=== PATIENT | male | born 1955 | race Caucasian/White ===

== ENCOUNTER 2019-09-02 12:20 | Emergency (ER) | payer BC, MEDICARE ==
--- OUTSIDE RECORDS SUMMARY | 2019-09-02 12:27 | XMS REPORT | Continuity of Care Document ---
:1955 External Reference #:[id number] Author Name Moris Alvarez MD (transmitted by agent of provider Joyce Farris) Address [address], [address] [place] [address] Care Team Providers Name Role Phone Darion Johnson MD - Orthopaedic Care Team Information Industrial Eng Surgery Peter Mitchell MD - Family Care Team Information Industrial Eng [phone] Medicine Problems Description No Information Available Social History Type Date Description Comments Sex Unknown Tobacco Use Start: Unknown Former Cigarette Occasional only, End: Unknown Smoker while in Smoking Status Reviewed: 08/26/19 Former Cigarette Occasional only, Smoker while in ETOH Use Consumes 2 glasses of wine per day Tobacco Use Start: Unknown Patient is a former End: Unknown smoker Recreational Drug Use Denies Drug Use Exercise Type/Frequency Exercises regularly Allergies, Adverse Reactions, Alerts Description No Known Drug Allergies Medications Active Medications SIG Qnty Indications Ordering Provider Date Esomeprazole Magnesium 1 by mouth 30caps R05 Moris Alvarez MD 08/26/[address] Aspir-81 1 by mouth Unknown 81mg Tablets DR every day Losartan Potassium 1 by mouth Peter Mitchell, 25mg daily Tablets Medications Administered in Office Medication SIG Qnty Indications Ordering Provider Date Depomedrol 80MG Shiva Pulido M.D. 04/06/2015 Injection Immunizations Description No Information Available Vital Signs Date Vital Result Comment 08/26/2019 8:03am Height 73 inches 6'1" Weight 192.38 lb Heart Rate 72 /min BP Systolic Sitting 156 mmHg Lue reg cuff BP Diastolic Sitting 98 mmHg Lue reg cuff O2 % BldC Oximetry 96 % On Ra BMI (Body Mass Index) 25.4 kg/m2 12/16/2017 9:41am Height 73 inches 6'1" Weight 189.00 lb Heart Rate 68 /min BP Systolic Sitting 156 mmHg BP Diastolic Sitting 86 mmHg Pain Level 2 BMI (Body Mass Index) 24.9 kg/m2 Procedures Date Code Description Status 05/01/2019 99815 Pulmonary Function><Bronchodil Completed Medical Devices Description No Information Available Encounters Description No Information Available Assessments Date Code Description Provider 08/26/2019 R91.8 Other nonspecific abnormal finding of lung field Moris Alvarez MD 08/26/2019 R05 Cough Moris Alvarez MD 05/01/2019 J44.9 Chronic obstructive pulmonary disease, Lou Vaz MD unspecified Plan of Treatment Future Appointment(s):10/01/2019 9:45 am - Moris Alvarez MD at [facility] [address]08/26/2019 - Moris Alvarez, MDR91.8 Other nonspecific abnormal finding of lung fieldNew Xrays:CT Chest W/O, Ordered: 08/26/19Comments: We will repeat CAT scan in early to middle September.R05 CoughNew Medication: Esomeprazole Magnesium 20 mg - 1 by mouth every dayNew Labs:Sputum Culture &amp ; Sensitiv, Ordered: 08/26/19putum Smear, Ordered: 08/26/19Comments:I will start him on omeprazole to see if that helps cough. I will also send sputum's for eosinophils and Gram stain culture. Functional Status Description No Information Available Mental Status Description No Information Available Referrals Description No Information Available
--- NOTE | 2019-09-02 15:15 | UC ---
Eye Complaint HPI - HPI Summary HPI Summary: WOKE UP THIS MORNING WITH BILATERAL EYE REDNESS, IRRITATION AND CLEAR DRAINAGE. OVER THE COURSE OF THE DAY HAS WORSENED ON THE RIGHT. HAS FOREIGN BODY SENSATION. COMPLAINING OF SOME DOUBLE VISION AND BLURRY VISION. NO HEADACHE, NAUSEA, PHOTOPHOBIA. DENIES ANY RECENT ILLNESS. DOES NOT WEAR CONTACT LENSES. - History of Current Complaint Chief Complaint: UCEye Stated Complaint: EYE PROBLEM Time Seen by Provider: 09/02/19 14:09 Hx Obtained From: Patient Onset/Duration: Sudden Onset, Lasting Hours, Still Present Timing: Constant Severity Initially: Moderate Severity Currently: Moderate Pain Intensity: 7 Pain Scale Used: 0-10 Numeric Location of Injury: Conjunctiva Character: Foreign Body Sensation Aggravating Factor(s): Nothing Alleviating Factor(s): Nothing Associated Signs And Symptoms: Positive: Drainage (Clear), Vision Impairment Right. Negative: Photophobia - Allergies/Home Medications Allergies/Adverse Reactions: Allergies Allergy/AdvReac Type Severity Reaction Status Date / Time No Known Allergies Allergy Verified 09/02/19 13:57 Home Medications: Home Medications Esomeprazole Magnesium [Nexium 24Hr] 1 tab PO DAILY 09/02/19 [History Confirmed 09/02/19] Losartan Potassium 1 tab PO QPM 09/02/19 [History Confirmed 09/02/19] PMH/Surg Hx/FS Hx/Imm Hx Other History Of: Negative For: Anticoagulant Therapy - Surgical History Surgical History: Yes Surgery Procedure, Year, and Place: Scwanoma removal-2006, LTHR- 2007. right knee repalacement. eyelid surgery - Social History Alcohol Use: Daily Alcohol Amount: " couple of glasses of wine" Substance Use Type: None Smoking Status (MU): Former Smoker - Immunization History Most Recent Influenza Vaccination: Did not have Most Recent Tetanus Shot: Within last 10 years Most Recent Pneumonia Vaccination: No Review of Systems All Other Systems Reviewed And Are Negative: Yes Constitutional: Positive: Negative Eyes: Positive: Blurred Vision, Diplopia, Drainage, Eye Redness. Negative: Photophobia ENT: Positive: Negative Respiratory: Positive: Negative Cardiovascular: Positive: Negative Gastrointestinal: Positive: Negative Neurological: Positive: Negative Physical Exam Triage Information Reviewed: Yes Appearance: Well-Appearing, No Pain Distress, Well-Nourished Vital Signs: Initial Vital Signs Temp 97.6 F 09/02/19 13:50 Pulse 65 09/02/19 13:50 Resp 18 09/02/19 13:50 BP 177/100 09/02/19 13:50 Pulse Ox 100 09/02/19 13:50 Eyes: Positive: Conjunctiva Inflamed - RIGHT>LEFT, Discharge - WATERY, Other: - PERRL, EOMI ENT: Positive: Hearing grossly normal Neck: Positive: Supple Respiratory: Positive: No respiratory distress, No accessory muscle use Cardiovascular: Positive: Pulses Normal Abdomen Description: Positive: Soft Musculoskeletal: Positive: No Edema Neurological: Positive: Alert Psychological: Positive: Age Appropriate Behavior Skin: Negative: Rashes Eye Complaint Course/Dx - Course Course Of Treatment: APPOINTMENT MADE FOR PATIENT WITH DR. ALEXANDER AT [facility] FOR TODAY AT 4:30. HE WILL FOLLOW-UP WITH THEM. - Differential Dx/Diagnosis Provider Diagnosis: Redness of both eyes Discharge ED - Sign-Out/Discharge Documenting (check all that apply): Patient Departure All imaging exams completed and their final reports reviewed: No Studies - Discharge Plan Condition: Stable Disposition: HOME Patient Education Materials: Eye Pain (ED) Referrals: Peter Mitchell MD [Primary Care Provider] - Herlinda Alexander MD [Medical Doctor] - (YOU HAVE AN APPT TODAY AT 4:30PM) Additional Instructions: I SCHEDULED AN APPOINTMENT FOR YOU WITH DR. ALEXANDER AT [facility] TODAY AT 4:30 PM. BRING YOUR INSURANCE CARD WITH YOU. - Billing Disposition and Condition Condition: STABLE Disposition: Home
[2019-09-02 15:31] VITALS: BP 170/90
== END 2019-09-02 15:29 | disposition home or self-care (01) ==
LOC: UCEAST 12:20
DX: H57.89 Other specified disorders of eye and adnexa (principal); Z87.891 Personal history of nicotine dependence
CPT/HCPCS: 99211; G0463

== ENCOUNTER 2019-10-19 11:14 | Day surgery (SDC) | payer MEDICARE ==
[~2019-10-19 11:14] MED LIST: Buffered Lidocaine 1% SYRIN* 1 ML/SYRINGE INTRADERM ONE; Famotidine IV* 10 MG/ML 2 ML (20 mg) IV ONE; Lactated Ringers 1000 ML Bag* 1,000 ML IV SCH; Levalbuterol 0.63MG/3ML NEB* UNIT OF USE INH ONE
[2019-10-19] MEDS ORDERED: Levalbuterol 0.63MG/3ML NEB* UNIT OF USE INH ONE (11:30)
[2019-10-19] MEDS ORDERED: Benzocaine/Butamben/Tetracain (CETACAINE - SINGLE USE) 5 gm TOPICAL ONE (12:35)
[2019-10-19] MEDS ORDERED: Famotidine IV* 10 MG/ML 2 ML (20 mg) ONE (12:37)
[2019-10-19] MEDS ORDERED: Lidocaine 1% INJ* 10 MG/ML 30 ML SDV ONE (12:41)
[2019-10-19] MEDS ORDERED: Propofol* 10 MG/ML 20 ML BTL ONE (13:01)
[2019-10-19] MEDS ORDERED: Rocuronium* 10 MG/ML VIAL ONE (13:03)
[2019-10-19] MEDS ORDERED: Glycopyrrolate IV* 0.2 MG/ML 1 ML VIAL ONE (13:05)
[2019-10-19] MEDS ORDERED: fentaNYL* 50 MCG/ML 2 ML VIAL (100 MCG VIAL) ONE (13:05)
[2019-10-19] MEDS ORDERED: Midazolam* 1 MG/ML 2 ML VIAL (2 MG) ONE (13:06)
[2019-10-19] MEDS ORDERED: Sugammadex * 500 MG/5 ML VIAL IV PUSH ONE (13:51)
[2019-10-19] MEDS ORDERED: Naloxone* 0.4 MG/ML 1 ML VIAL IV PRN (14:23)
[2019-10-19] MEDS ORDERED: fentaNYL* 50 MCG/ML 2 ML VIAL (100 MCG VIAL) IV PRN (14:23)
[2019-10-19 15:19] VITALS: BP 149/87
--- NOTE | 2019-10-19 23:51 | PRO ---
BRONCHOSCOPY REPORT: DATE OF PROCEDURE: 10/19/19 PROCEDURE: Bronchoscopy. DESCRIPTION OF PROCEDURE: The patient was taken back into the operating room, bronchoscopy suite. The patient was intubated by Anesthesia with general anesthesia. Time-out performed. Bronchoscope was advanced to the endotracheal tube. Left upper lobe, lingula, left lower lobe were unremarkable, normal mucosa, normal secretions. No endobronchial lesions evident. Right upper lobe was unremarkable. Rachel and trachea were sharp. Right upper lobe normal mucosa, normal secretions, no endobronchial lesions. Right middle lobe unremarkable, normal mucosa, no secretions, no endobronchial lesions. Right lower lobe unremarkable, normal mucosa, no endobronchial secretions, no endobronchial lesions. The right basilar segment, the bronchoscope was advanced to and wedged. The patient was turned with the help of the [facility] staff with the left side down and right side up to facilitate more return of the bronchoscopy. I instilled 150 mL of saline into the right lower lobe. BAL returned about 22 mL of fluid. The bronchoscopy specimen will be sent for cell count, differential, Gram stain, culture, fungal, DEMARIO prep to rule out nocardia , and acid-fast bacilli smear and culture. We will also order cytology and we will await the results of the bronchoscopy. [id number]/[facility] #: [id number] [facility]
== END 2019-10-19 15:10 | disposition home or self-care (01) ==
LOC: OR 11:14
PROVIDERS: ATTEND Internal Medicine
DX: R91.8 Other nonspecific abnormal finding of lung field (principal); R05 Cough; Z87.891 Personal history of nicotine dependence; I10 Essential (primary) hypertension; Z96.659 Presence of unspecified artificial knee joint; Z96.642 Presence of left artificial hip joint
CPT/HCPCS: 87070; 87073; 87116; 87205; 87206; 88112; 88305; J2250; J2704; J3010

== ENCOUNTER 2024-01-24 06:51 | Observation (INO) ==
[~2024-01-24 06:51] MED LIST changes: -Buffered Lidocaine 1% SYRIN* 1 ML/SYRINGE INTRADERM ONE; -Famotidine IV* 10 MG/ML 2 ML (20 mg) IV ONE; -Lactated Ringers 1000 ML Bag* 1,000 ML IV SCH; -Levalbuterol 0.63MG/3ML NEB* UNIT OF USE INH ONE; +Naloxone 0.4 mg VIAL 0.4 mg/ml 1 ml VIAL IV PRN; +Ondansetron 4 mg VIAL 2 MG/ML 2 ml VIAL IV PRN; +fentaNYL 100 mcg/2 ml 50 MCG/ML VIAL IV PRN
[2024-01-24] MEDS ORDERED: Buffered Lidocaine 1% SYRIN 1 ml ONE (07:09)
[2024-01-24] MEDS ORDERED: Tranexamic Acid 1 GM/100ML BAG 2,000 MG/200 ML BAG IV ONE (07:09)
[2024-01-24] MEDS ORDERED: ceFAZolin 2 GM PREMIX 2 GM/50 ML BAG ONE (07:09)
[2024-01-24 07:26] LABS: Rapid COVID-19 Molecular Undetected (Undetected)
[2024-01-24] MEDS: Lactated Ringers 1000 ml BAG 1,000 ML IV SCH ×2 (07:27→13:29)
[2024-01-24] MEDS: Buffered Lidocaine 1% SYRIN 1 ml INTRADERM ONE (07:27)
[2024-01-24] MEDS ORDERED: ROPIVACAINE 5 MG/ML 30 ML BTL (0.5%) ONE (07:46)
[2024-01-24] MEDS ORDERED: Midazolam 2 mg/2 ml VIAL 1 mg/ml 2 ml VIAL (2 mg) ONE (07:49)
[2024-01-24] MEDS ORDERED: fentaNYL 100 mcg/2 ml 50 MCG/ML VIAL ONE (07:49)
[2024-01-24] MEDS ORDERED: Phenylephrine IV 10 MG/ML 1 ml VIAL ONE (09:20)
[2024-01-24] MEDS ORDERED: Magnesium Hydroxide LIQ 30 ML UDC PO PRN (09:51)
[2024-01-24] MEDS ORDERED: Lactulose 30 ml UDC PO PRN (09:51)
[2024-01-24] MEDS ORDERED: Calcium Carb (TUMS) 500 mg CHEW TAB PO PRN (09:51)
[2024-01-24] MEDS ORDERED: Ondansetron 4 mg VIAL 2 MG/ML 2 ml VIAL IV PRN (09:51)
[2024-01-24] MEDS ORDERED: Ondansetron ODT 4 mg TAB 4 MG TAB PO PRN (09:51)
[2024-01-24] MEDS ORDERED: Morphine 2 MG/ML SYRINGE IV PRN (09:51)
[2024-01-24] MEDS ORDERED: Propofol 10 MG/ML 20 ML BTL ONE (10:15)
[2024-01-24] MEDS ORDERED: Glycopyrrolate IV 0.2 MG/ML 1 ML VIAL ONE (10:24)
[2024-01-24 15:15] VITALS: BP 159/101
[2024-01-24] MEDS: ceFAZolin 2 GM PREMIX 2 GM/50 ML BAG IVPB SCH (16:42)
[2024-01-24] MEDS ORDERED: Magnesium Hydroxide LIQ 30 ML UDC PO SCH (21:00)
[2024-01-25] MEDS ORDERED: Vitamin THERAPEUTIC TAB PO SCH (09:00)
== END 2024-01-24 18:00 | disposition home or self-care (01) ==
LOC: SSU 06:51 → OR 06:51
PROVIDERS: ADMIT Orthopaedic Surgery Adult Reconstructive Orthopaedic Surgery; ATTEND Orthopaedic Surgery Adult Reconstructive Orthopaedic Surgery